=== PATIENT | male | born 2005 | race Caucasian/White ===

== ENCOUNTER 2024-10-23 23:10 | Emergency (ER) | payer OTHER, SELFPAY ==
--- NOTE | ~2024-10-23 | XR_ITS ---
CLINICAL HISTORY: pain 1 view chest x-ray. Comparison: None Findings: No consolidation, pneumothorax, or effusion. Heart size normal. Impression: 1. No acute cardiopulmonary process. No focal pulmonary consolidation. This document has been electronically signed by: Tommy Salas MD on 10/24/2024 03:50:32
[2024-10-23 23:17] VITALS: BP 132/80; PULSE 72; RESP 14; TEMP 36.6; O2SAT 98; BMI 17.6
--- NOTE | 2024-10-23 23:21 | ECG_ITS ---
Test Reason : chest pain Blood Pressure : */* mmHG Vent. Rate : 62 BPM Atrial Rate : 62 BPM P-R Int : 148 ms QRS Dur : 84 ms QT Int : 366 ms P-R-T Axes : 71 79 79 degrees QTcB Int : 371 ms Normal sinus rhythm Early repolarization Normal ECG No previous ECGs available Referred By: Generic ED Physician Electronically Signed By: GILMAR GREGORY
[2024-10-23 23:55] LABS: Alanine Aminotransferase 30 U/L (0-40); Albumin Level 4.6 g/dL (3.5-5.0); Alkaline Phosphatase 55 U/L (39-117); Anion Gap 14 (12-20); Aspartate Amino Transferase 26 U/L (5-37); Bilirubin Total 0.4 mg/dL (0.0-1.0); Blood Urea Nitrogen 17 mg/dL (9-16); Calcium 10.1 mg/dL (8.4-10.2); Carbon Dioxide 24 mmol/L (22-29); Chloride 107 mmol/L (96-108); Creatinine Clr Calc Pharmacy 104.7; Estimated Glomerular Filt Rate > 60; Glucose Random 127 mg/dL (60-115); Potassium 3.9 mmol/L (3.3-5.1); Sodium 141 mmol/L (135-145); Total Protein 7.9 g/dL (6.5-8.0)
[2024-10-24 00:02] LABS: Troponin-I High Sensitivity < 2.7 ng/L (<3.5-35.0)
[2024-10-24 00:18] LABS: Basophils Absolute Auto 0.1 X10*3/uL (0.0-0.2); Basophils Percent Auto 0.8 % (0-2); Eosinophils Absolute Auto 0.1 X10*3/uL (0.0-0.4); Eosinophils Percent Auto 1.1 % (0-4); Hematocrit 43.7 % (42.0-52.0); Hemoglobin 15.1 g/dl (14.0-18.0); Imm Gran Abs Auto 0.06 X10*3/uL (0.00-0.03); Imm Gran Pct Auto 0.6 % (0.0-0.4); Lymphocytes Absolute Auto 2.2 X10*3/uL (1.2-4.9); Lymphocytes Percent Auto 21.2 % (20-40); Mean Corpuscular HGB Conc 34.6 g/dl (31.0-36.0); Mean Corpuscular Hemoglobin 30.1 pg (27.0-33.0); Mean Corpuscular Volume 87.1 fL (80.0-98.0); Mean Platelet Volume 10.7 fL (9.4-12.4); Monocytes Absolute Auto 1.2 X10*3/uL (0.1-1.2); Neutrophils Absolute Auto 6.8 x10*3/uL (2.0-8.3); Neutrophils Percent Auto 65.3 % (45-73); Platelet Count 251 X10*3/uL (160-400); Red Blood Count 5.02 X10*6/uL (4.60-5.80); Red Cell Distribution Width 12.7 % (11.0-16.0); White Blood Count 10.4 X10*3/uL (4.8-10.8)
[2024-10-24 00:20] LABS: MANUAL DIFF FLAG NO
[2024-10-24 02:30] VITALS: BP 142/80; PULSE 53; RESP 20; TEMP 36.7; O2SAT 99
[2024-10-24] MEDS: Ibuprofen 600 MG TABLET PO (02:49)
--- NOTE | 2024-10-24 03:44 | ED.CHESTPAIN ---
HPI - Chest Pain General Chief Complaint: Chest Pain Stated Complaint: Chest Pain Time Seen by Provider: 10/24/24 02:13 Source: patient Limitations: no limitations History of Present Illness ED Provider: Brenda Tracey PA-C HPI narrative: 19-year-old male presents with chest pain x1 month. Patient states the pain is very focal over his central chest over his breastbone, worse with movement and palpation. Over the past few days, the discomfort has progressed. While driving tonight, the patient states he felt ?popping? in the chest while turning the steering wheel. Denies recent cough or cold symptoms, new heavy lifting, new exercise or trauma, that could have precipitated his discomfort. Related Data Previous Rx's ?Medication ?Instructions ?Recorded methocarbamol 750 mg tablet 750 mg PO BEDTIME PRN pain, 10/24/24 moderate #7 tabs Allergies Allergy/AdvReac Type Severity Reaction Status Date / Time codeine Allergy Unknown Verified 10/23/24 23:21 Review of Systems Review of Systems: Yes all other systems are reviewed and are negative Constitutional: Constitutional: Denies fatigue and Denies fever(s) Cardiovascular: Cardiovascular: Reports chest pain and Denies dyspnea Respiratory: Respiratory: Denies cough and Denies dyspnea Gastrointestinal: Gastrointestinal: Denies abdominal pain, Denies diarrhea, Denies nausea and Denies vomiting Endocrine: Endocrine: Denies fatigue PMFSH Past Medical History Attestation statement: The following information was validated with the patient. Social History Social History Substance Use Type: Marijuana Physical Exam Vital Signs: Vital Signs: Last Vital Signs Temp 98.0 F 10/24/24 02:30 Pulse 53 10/24/24 02:30 Resp 20 10/24/24 02:30 BP 142/80 H 10/24/24 02:30 Pulse Ox 99 10/24/24 02:30 O2 Del Method Room Air 10/24/24 02:30 BMI result Body Mass Index 17.6 Const: Other: Alert Orientation/consciousness: patient oriented x3 Chest: Other: Pain over central chest wall with palpation no deformity no swelling no erythema or ecchymosis Resp: Effort & Inspection: normal respiratory effort Cardio: Other: Normal peripheral perfusion Skin: Other: Warm dry no rash Neuro: General: patient oriented x3, gait normal, no focal motor deficits and CN's II-XI intact bilaterally Psych: Other: Cooperative Medications Administered Discontinued Medications Generic Name Dose Route Start Last Admin Trade Name Cornelio PRN Reason Stop Dose Admin Ibuprofen 600 mg 10/24/24 02:42 10/24/24 02:49 Ibuprofen 600 Mg Tablet PO 10/24/24 02:43 600 mg ONCE ONE Administration Medical Decision Making Medical Decision Making [facility] Narrative: 19-year-old male presents with chest pain x1 month. Patient states the pain is very focal over his central chest over his breastbone, worse with movement and palpation. Over the past few days, the discomfort has progressed. While [place] [employer], the patient states he felt ?popping? in the chest while turning the steering wheel. Denies recent cough or cold symptoms, new heavy lifting, new exercise or trauma, that could have precipitated his discomfort. No chronic issues History: Per patient I have considered the following differential diagnoses: ACS, chest wall strain, costochondritis, pneumonia, rib fracture Plan: The patient does not have a mechanism of injury to suggest chest wall strain and/or rib fracture, obtaining a chest x-ray. He has not been sick recently, denies cough/cold sxs, pneumonia less likely. Could be costochondritis, however I usually attributes this secondary to recent viral syndrome. ACS was considered, despite the fact that the patient has no risk factors for coronary artery disease, screening labs including cardiac enzyme and EKG were obtained, to note the patient's heart score is 0. I have independently reviewed the following tests: Labs: No leukocytosis, not anemic, no electrolyte abnormality, troponin negative EKG: Normal sinus rhythm, rate of 62, no ischemic changes no ectopy QTC 371 Chest x-ray:1 view chest x-ray. Comparison: None Findings: No consolidation, pneumothorax, or effusion. Heart size normal. Impression: 1. No acute cardiopulmonary process. No focal pulmonary consolidation. This document has been electronically signed by: Tommy Salas MD on 10/24/2024 03:50:32 Lab Data 10/24/24 00:09 10/23/24 23:32 Labs: Lab Results 10/23/24 10/24/24 Range/Units 23:32 00:09 WBC 10.4 (4.8-10.8) X10*3/uL RBC 5.02 (4.60-5.80) X10*6/uL Hgb 15.1 (14.0-18.0) g/dl Hct 43.7 (42.0-52.0) % MCV 87.1 (80.0-98.0) fL MCH 30.1 (27.0-33.0) pg MCHC 34.6 (31.0-36.0) g/dl RDW 12.7 (11.0-16.0) % Plt Count 251 (160-400) X10*3/uL MPV 10.7 (9.4-12.4) fL Immature Gran % (Auto) 0.6 H (0.0-0.4) % Neut % (Auto) 65.3 (45-73) % Lymph % (Auto) 21.2 (20-40) % Osborne % (Auto) 11.0 (2-11) % Eos % (Auto) 1.1 (0-4) % Baso % (Auto) 0.8 (0-2) % Lymph # (Auto) 2.2 (1.2-4.9) X10*3/uL Osborne # (Auto) 1.2 (0.1-1.2) X10*3/uL Eos # (Auto) 0.1 (0.0-0.4) X10*3/uL Baso # (Auto) 0.1 (0.0-0.2) X10*3/uL Abs Immat Gran (auto) 0.06 H (0.00-0.03) X10*3/uL Absolute Neuts (auto) 6.8 (2.0-8.3) x10*3/uL Absolute Nucleated RBC 0.000 (0.0-0.012) X10*3/uL Nucleated RBC % (auto) 0.0 (0.0-0.2) /100WBC Sodium 141 (135-145) mmol/L Potassium 3.9 (3.3-5.1) mmol/L Chloride 107 (96-108) mmol/L Carbon Dioxide 24 (22-29) mmol/L Anion Gap 14 (12-20) BUN 17 H (9-16) mg/dL Creatinine 0.93 (0.5-1.4) mg/dL Estim Creat Clear Calc 104.7 Estimated GFR > 60 Random Glucose 127 H (60-115) mg/dL Calcium 10.1 (8.4-10.2) mg/dL Total Bilirubin 0.4 (0.0-1.0) mg/dL AST 26 (5-37) U/L ALT 30 (0-40) U/L Alkaline Phosphatase 55 (39-117) U/L Troponin I High Sens < 2.7 (<3.5-35.0) ng/L Total Protein 7.9 (6.5-8.0) g/dL Albumin 4.6 (3.5-5.0) g/dL Discharge Plan Discharge Clinical Impression: Costochondritis Patient Disposition: Home, Self-Care Instructions: Costochondritis (ED) Additional Instructions: All of your screening labs including a cardiac enzymes were normal. There were no concerning changes on the EKG and the chest x-ray is clear. Your discomfort is consistent with costochondritis. See home care instructions. Use OTC ibuprofen 600 mg taken every 6 hours with food, to help alleviate this inflammatory process. You can reserve the muscle relaxant, the methocarbamol, at night for sleep. This medication does cause drowsiness, do not drive or operate machinery while taking this medication. Follow up with your primary care provider as needed. Prescriptions: New methocarbamol 750 mg tablet 750 mg PO BEDTIME PRN (Reason: pain, moderate) Qty: 7 0RF Stand Alone Forms: Work/School Release Print Language: [place]
[2024-10-24 03:59] VITALS: BP 142/80; PULSE 53; RESP 20; TEMP 36.7; O2SAT 99
== END 2024-10-24 04:05 | disposition home or self-care (01) ==
PROVIDERS: Emergency Provider Emergency Medicine
DX: M94.0 Chondrocostal junction syndrome [Tietze] (principal); R07.89 Other chest pain; R94.31 Abnormal electrocardiogram [ECG] [EKG]; Z79.899 Other long term (current) drug therapy
CPT/HCPCS: 36415; 71045; 80053; 84484; 85025; 93005; 99283; 99285

== ENCOUNTER → 2024-10-23 23:21 | Outpatient (BNV) | payer OTHER, SELFPAY | PROVIDERS: Emergency Provider Emergency Medicine; Visit Provider Internal Medicine | DX: R07.9 Chest pain, unspecified (principal) | CPT/HCPCS: 93010 ==

== ENCOUNTER → 2024-10-24 02:36 | Outpatient (BNV) | payer OTHER, SELFPAY | PROVIDERS: Emergency Provider Emergency Medicine; Visit Provider Radiology Diagnostic Radiology | DX: R07.9 Chest pain, unspecified (principal) | CPT/HCPCS: 71045 ==